=== PATIENT | male | born 1990 ===

== ENCOUNTER 2021-12-21 13:34 | Emergency (ER) | payer MEDICAID, OTHER ==
[~2021-12-21] VITALS: Ht 182.9 cm; Wt 61.2 kg
[2021-12-21 14:47] VITALS: BP 108/87
== END 2021-12-21 15:43 | disposition home or self-care (01) ==
LOC: ER 13:34
DX: S61.215A Laceration without foreign body of left ring finger without damage to nail, initial encounter (principal); F17.210 Nicotine dependence, cigarettes, uncomplicated; Z88.1 Allergy status to other antibiotic agents; W26.8XXA Contact with other sharp object(s), not elsewhere classified, initial encounter; Y93.89 Activity, other specified; Y92.89 Other specified places as the place of occurrence of the external cause; Y99.8 Other external cause status
CPT/HCPCS: 12001